=== PATIENT | female | born 1985 | race African-American/Black ===

== ENCOUNTER 2017-07-03 12:30 | Emergency (ER) | payer OTHER ==
[~2017-07-03] VITALS: Ht 162.6 cm; Wt 113.9 kg
[2017-07-03 12:34] VITALS: BP 13/75
--- NOTE | 2017-07-03 12:38 | NUR ---
Patient ambulated to bed 5. RN evaluating patient at bedside.
--- NOTE | 2017-07-03 12:40 | NUR ---
REPORT GIVEN TO AG DUKES.
--- NOTE | 2017-07-03 12:45 | NUR ---
31f bib boyfriend with c/o 08/24 intermittent epigastric pain x yesterday after eating "b[place] food and drinking liquor". Patient reports pain has decreased since yesterday. Patient reports of vomitting x 1 yesterday night. Patients denies any n/v/d or urinary complaints at this time. Pt is aox4. GCS=15. Awaiting er md ramírez. Patient changed into gown. All needs met at this time. Will continue to monitor.
--- NOTE | 2017-07-03 13:02 | NUR ---
Dr. Chung evaluating patient at bedside.
[2017-07-03] MEDS ORDERED: ALUMINUM HYD/MAG/SIMETHICONE 30 ML, DICYCLOMINE HCL LIQUID 20 MG, LIDOCAINE VISCOUS 2% ... PO ONE ×3 (13:20)
[2017-07-03] MEDS ORDERED: FAMOTIDINE 20 MG TAB PO ONE (13:20)
[2017-07-03] MEDS ORDERED: KETOROLAC 15 MG/ML VIAL IM ONE (13:20)
--- NOTE | 2017-07-03 13:42 | NUR ---
lab by bedside
[2017-07-03 13:53] LABS: APPEARANCE,URINE CLOUDY (CLEAR); BILIRUBIN,URINE NEGATIVE (NEGATIVE); BLOOD, URINE NEGATIVE (NEGATIVE); COLOR,URINE YELLOW (YELLOW); LEUKOCYTE ESTERASE ,URINE NEGATIVE (NEGATIVE); NITRITE, URINE NEGATIVE (NEGATIVE); UGLUCOSE NEGATIVE (NEGATIVE)
[2017-07-03 13:54] LABS: BASOPHILS % (AUTO) 0.4 % (0.0-2.0); EOSINOPHILS # (AUTO) 0.3 K/uL (0-0.4); HEMATOCRIT 36.5 % (36-48); HEMOGLOBIN 11.8 g/dL (12.0-16.0); LYMPHOCYTES # (AUTO) 2.4 K/uL (2.5-16.5); MEAN CORPUSCULAR HEMOGLOBIN 28 pg (27-31); MEAN CORPUSCULAR HGB CONC 32 g/dL (33-37); MEAN CORPUSCULAR VOLUME 84.9 fL (80-94); MONOCYTES # (AUTO) 0.9 K/uL (0.8-1.0); MONOCYTES % (AUTO) 7.9 % (1.7-9.3); NEUTROPHILS # (AUTO) 7.3 K/uL (1.8-7.7); NEUTROPHILS % (AUTO) 66.7 % (42.2-75.2); PLATELET COUNT (AUTO) 309 K/uL (140-450); RED CELL DISTRIBUTION WIDTH 15.5 % (11.6-13.7)
[2017-07-03 14:03] LABS: ANION GAP 7.2 (8-16); CARBON DIOXIDE 29.6 mmol/L (21-32); CREATININE 0.6 mg/dL (0.6-1.3); POTASSIUM 3.8 mmol/L (3.5-5.1)
[2017-07-03 14:10] LABS: ALBUMIN 2.9 g/dL (3.4-5.0); TOTAL BILIRUBIN 0.3 mg/dL (0.0-1.0)
[2017-07-03 15:04] VITALS: BP 122/71
--- NOTE | 2017-07-03 15:04 | NUR ---
Patient discharged with v/s stable. Written and verbal after care instructions given and explained. Patient alert, oriented and verbalized understanding of instructions. Ambulatory with steady gait. All questions addressed prior to discharge. ID band removed. Patient advised to follow up with PMD. Rx of Reglan and Pepcid given. Patient educated on indication of medication including possible reaction and side effects. Opportunity to ask questions provided and answered.
== END 2017-07-03 15:04 | disposition home or self-care (01) ==
LOC: MED 12:30
DX: K29.70 Gastritis, unspecified, without bleeding (principal); Z90.49 Acquired absence of other specified parts of digestive tract
CPT/HCPCS: 36415; 80053; 81003; 83690; 84703; 85025; 99284; J1885